=== PATIENT | female | born 1985 | race Caucasian/White ===

== ENCOUNTER 2024-02-18 07:12 | Emergency (ER) | payer SELFPAY ==
[~2024-02-18] VITALS: Ht 167.6 cm; Wt 136.1 kg
[2024-02-18 07:33] VITALS: BP 169/108; PULSE 89; RESP 18; TEMP 97.7; O2SAT 89
[2024-02-18] MEDS: DEXAMETHASONE 10 MG/ML VIAL PO ONE (08:59)
[2024-02-18] MEDS: IBUPROFEN 600 MG TAB PO ONE (08:59)
[2024-02-18] MEDS ORDERED: AMOX500C25 PO (09:30)
[2024-02-18] MEDS ORDERED: IBUP-2218 PO (09:30)
[2024-02-18] MEDS: AMOXICILLIN 500 MG CAP PO ONE (09:50)
[2024-02-18 10:16] VITALS: BP 169/108; PULSE 89; RESP 18; TEMP 97.7; O2SAT 96
== END 2024-02-18 10:14 | disposition home or self-care (01) ==
LOC: MED 07:12
DX: J02.0 Streptococcal pharyngitis (principal); Z79.899 Other long term (current) drug therapy
CPT/HCPCS: 71045; 81025; 87081; 99284; J1100; Q0092